=== PATIENT | female | born 1975 | race Two or more races ===

== ENCOUNTER 2024-08-12 09:13 | Outpatient (RCR) | payer MEDICAID, SELFPAY ==
--- NOTE | 2024-08-12 10:12 | CTCCONSULT_ITS ---
[address] [address] RE: TERRI GLASS D.O.B.: 1975 AGE: 49 DATE OF CONSULTATION: 08/12/2024 DIAGNOSIS: Iron deficiency anemia, unspecified [ICD10] D50.9 REFERRING PHYSICIAN: Frances Banerjee PRIMARY PHYSICIAN : REASON FOR CONSULTATION: Iron deficiency anemia HISTORY OF PRESENT ILLNESS: Patient is 49-year-old postmenopausal woman. Her last menstruation was 3 years ago patient normally weighs at 250 pounds and she says she has been losing unintentionally weight. Over the course she santos s lost about 25 pounds in last 2 months. She has not tried to change her diet or exercising. She do es not notice any change in the color of her stools. 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 GI: No nausea, vomiting, diarrhea or constipation. CVS: No palpitations or angina pains. Respiratory: No cough, chest pain or shortness of breath. VITAL SIGNS: Date 08/12/2024 Time 9:24 AM Vital Signs, Weight and PS ? ??T (F) (F) 98.4 ??P 71 ??B/P (mmHg) 132/86 ??Weight (lb) (lb) 225 PHYSICAL EXAMINATION: Alert oriented x 4 chest is clear to auscultation. No wheezes or rales audible. CVS: Rhythm regular, no murmurs or gallops present. Abdomen is soft. No hepatosplenomegaly. Extremities: No pedal edema or cyanosis. LABORATORY DATA: Date Time ASSESSMENT: #1 iron deficiency anemia #2 unintentional weight loss PLAN: ??Patient have significant weight loss of 30 pounds Lab review indicate patient has iron deficiency also have low normal B12 along with macrocytosis Patient need to be interested for malignancy for unintentional weight loss Patient need workup for iron loss or bleeding Will send for gastroenterology to do EGD and colonoscopy Tumor markers for colon cancer as well as CT scan chest abdomen pelvis to rule out any underlying mal ignancy RTC in 3 weeks Patient advised to hold oral iron and complete labs and then restart Ferritin is less than 40 but about 20 Patient is a good candidate to continue oral iron ORDERS: CBC with Auto Diff + Comprehensive Metabolic Panel - 12 + CEA + MD Follow Up [address] Scan + With Contrast + Chest + Abdomen and Pelvis Assay Of Haptoglobin Quant + Iron Panel + Ferritin + Vitamin B-12 + Folic Acid; Serum + Lactate Dehyd rogenase (LDH) RETURN TO CLINIC: cc: PCP, Referring: Frances Banerjee Electronically Signed 08/12/2024 at 10:10 AM Jace Wheat MD Patient: TERRI GLASS : 1975 MR#: [id number] Account: [id number] FOLLOW UP NOTE Page 4 of 4
== END 2024-09-10 23:59 | disposition home or self-care (01) ==
LOC: SCTC 09:13
PROVIDERS: PCP Physician Assistant; Referring Provider Physician Assistant; Visit Provider Internal Medicine Hematology & Oncology
DX: D50.9 Iron deficiency anemia, unspecified (principal); R63.4 Abnormal weight loss; Z78.0 Asymptomatic menopausal state
CPT/HCPCS: 99213; G0463

== ENCOUNTER → 2024-09-02 | Outpatient (CLI) | payer MEDICAID, SELFPAY ==
--- NOTE | 2024-09-02 13:00 | XR_ITS ---
Examination: CT chest with intravenous contrast CT abdomen with intravenous contrast CT pelvis with intravenous contrast 2-D coronal and sagittal reconstructions Time of exam: September 02, 2024 at 1314 hours INDICATIONS: Diagnosis iron deficiency anemia unspecified, history dyspnea, history Covid positive with fever CTDI: vol (mGy) : 18.4 DLP: (mGycm): 1443 Technique: Multiple axial images of the chest, abdomen and pelvis with intravenous contrast, 3.0 mm slice thickness. Images obtained post intravenous injection Isovue 370 60 cc. 2-D sagittal and coronal reconstructions. Low dose protocols were performed. One or more of the following dose reduction techniques were used; automated exposure control, adjustment of the mA and/or KV according to patient size, use of iterative reconstruction technique. Findings: No thoracic aortic aneurysm dilatation Pulmonary artery segments are not enlarged Moderate calcification left anterior descending coronary artery No paratracheal tracheobronchial or bronchopulmonary adenopathy Atelectasis versus pneumonia left base Stomach is herniated into the left hemithorax No focal liver or splenic lesion Aorta normal size No pancreatic mass No renal or ureteral calculi, no hydronephrosis Normal appendix Tiny fat-containing umbilical hernia No bowel obstruction Anteverted uterus with mildly enlarged fundus Urinary bladder intact IMPRESSION: No mediastinal lymphadenopathy Atelectasis versus mild pneumonia left base clinical correlation advised Stomach is herniated into the left hemithorax No abdominal or pelvic lymphadenopathy Mildly enlarged fundus of uterus, recommend pelvic sonography follow-up
== END | disposition home or self-care (01) ==
LOC: SCAT 12:49
PROVIDERS: PCP Family Medicine; Referring Provider Internal Medicine Hematology & Oncology; Visit Provider Internal Medicine Hematology & Oncology
DX: K46.9 Unspecified abdominal hernia without obstruction or gangrene (principal); R91.8 Other nonspecific abnormal finding of lung field
CPT/HCPCS: 71260; 74177; A4649; Q9967

== ENCOUNTER 2024-10-01 14:03 | Outpatient (RCR) | payer MEDICAID, SELFPAY ==
--- NOTE | 2024-10-13 14:00 | CTCFLWUP_ITS ---
Patient: TERRI GLASS : 1975 Page 2 of 3 FOLLOW UP NOTE DATE OF SERVICE: 10/01/2024 NAME: TERRI GLASS ACCOUNT: [id number] : 1975 AGE: 49 INTERVAL HISTORY: Patient is 49-year-old postmenopausal woman. Her last menstruation was 3 years ago patient normally weighs at 250 pounds and she says she has been losing unintentionally weight. Over the course she has lost about 25 pounds in last 2 months. She has not tried to change her diet or exercising. She does not notice any change in the color of her stools. ONCOLOGY HISTORY: DIAGNOSIS: Iron deficiency anemia, unspecified [ICD10] D50.9 HISTORY OF PRESENT ILLNESS: Patient is 49-year-old postmenopausal woman. Her last menstruation was 3 years ago patient normally weighs at 250 pounds and she says she has been losing unintentionally weight. Over the course she has lost about 25 pounds in last 2 months. She has not tried to change her diet or exercising. She does not notice any change in the color of her stools. 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 - No Nipple discharge - No MEDICATIONS: 1. atorvastatin - 10 mg 1 tab Daily 2. ferrous sulfate - 325 mg (65 mg iron) 1 tab Daily 3. lisinopril - 20 mg 1 tab Daily 4. metFORMIN - 1,000 mg 1 tab Twice a Day Medications Last Reconciled by Amy Haskins MA on 10/01/2024 ALLERGIES: No Known Allergies REVIEW OF SYSTEMS: A complete 14-point review of systems was performed and is negative except as noted in interval history. PHYSICAL EXAMINATION: VITAL SIGNS: Temperature?98, B/P?140/89, Oxygen?Saturation?97% Weight?225?lbs PAIN: 0 - No pain GENERAL APPEARANCE: Appears well, in no apparent distress, appropriately interactive. HEENT: Normocephalic, no temporal wasting, normal conjunctiva, no scleral icterus, normal hearing, lips without lesions, neck normal range of motion. CARDIOVASCULAR: Not assessed. PULMONARY: Normal respiratory effort, no respiratory distress or use of accessory muscles, speaking in full sentences, no tachypnea. EXTREMITIES: No pedal edema or cyanosis. SKIN: Normal skin appearance. NEUROLOGIC: Alert and oriented x4. PSHYCHIATRIC: Appropriate affect, mood normal, behavior normal, intact thought and speech. LABORATORY DATA: I have personally reviewed and interpreted each of the patient?s relevant lab tests, abnormal findings are below: Date ASSESSMENT/PLAN: #1 iron deficiency anemia #2 unintentional weight loss ??Patient have significant weight loss of 30 pounds Lab review indicate patient has iron deficiency also have low normal B12 along with macrocytosis Patient need to be interested for malignancy for unintentional weight loss Patient need workup for iron loss or bleeding Will send for gastroenterology to do EGD and colonoscopy Tumor markers for colon cancer as well as CT scan chest abdomen pelvis to rule out any underlying malignancy RTC in 3 weeks Patient advised to hold oral iron and complete labs and then restart Ferritin is less than 40 but about 20 Patient is a good candidate to continue oral iron ORDERS: Cbc,cmp,cea Ct scans Ldh ,haptoglobin RETURN TO CLINIC: 3 months BILLING AND COMPLIANCE: I reviewed external records from providers outside my specialty as summarized above. I spent a total of 50 minutes on this patient?s care on the day of their visit excluding time spent related to any billed procedures. This time includes time spent with the patient as well as time spent documenting in the medical record, reviewing patients records and tests, obtaining history, placing orders, communicating with other healthcare professionals, counseling the patient, family or caregiver, and/or care coordination for the diagnoses above. Electronically Signed by: Jace Wheat MD T: 1:58 PM CC: PCP: Referring: Demian, Aditya Y This document was completed utilizing speech recognition software. Grammatical errors, random word insertions, pronoun errors, and incomplete sentences are an occasional consequence of this system due to software limitations, ambient noise, and hardware issues. Any formal questions or concerns about the content, text or information contained within the body of this dictation should be directly addressed to the provider for clarification.
== END 2024-10-11 23:59 | disposition home or self-care (01) ==
LOC: SCTC 14:03
PROVIDERS: PCP Family Medicine; Referring Provider Family Medicine; Visit Provider Internal Medicine Hematology & Oncology
DX: D50.9 Iron deficiency anemia, unspecified (principal); D75.89 Other specified diseases of blood and blood-forming organs; R63.4 Abnormal weight loss; Z78.0 Asymptomatic menopausal state
CPT/HCPCS: 99212; G0463

== ENCOUNTER → 2024-10-14 | Outpatient (CLI) | payer MEDICAID, SELFPAY ==
--- NOTE | 2024-10-14 11:30 | XR_ITS ---
Examination: Pelvic ultrasound, transabdominal, complete Technique: Transabdominal ultrasound of the pelvis performed using grayscale imaging Date and time of exam: October 14, 2024 at 1201 hours INDICATIONS: Pelvic pain this week, enlarged uterus on CT examination September 02, 2024 FINDINGS: Uterus 11.8 x 6.1 x 7.9 cm diffusely enlarged no discrete mass Endometrial stripe 1.5 cm Ovaries obscured by bowel gas IMPRESSION: Diffuse enlargement of the uterus without discrete uterine mass
== END | disposition home or self-care (01) ==
LOC: CDIM 11:36
PROVIDERS: Referring Provider Internal Medicine Hematology & Oncology; Visit Provider Internal Medicine Hematology & Oncology
DX: N85.2 Hypertrophy of uterus (principal)
CPT/HCPCS: 76856

== ENCOUNTER 2024-11-07 08:22 | Outpatient (RCR) | payer MEDICAID, SELFPAY | END 2024-11-08 23:59 | disposition home or self-care (01) | LOC: SCTC 08:22 | PROVIDERS: PCP Family Medicine; Referring Provider Nurse Practitioner Family; Visit Provider Nurse Practitioner Family | DX: D50.9 Iron deficiency anemia, unspecified (principal); R63.4 Abnormal weight loss; N85.2 Hypertrophy of uterus | CPT/HCPCS: 99212; G0463 ==